=== PATIENT | female | born 1965 | race Caucasian/White ===

== ENCOUNTER 2018-01-08 19:30 | Outpatient (CLI) | payer BC | END 2018-01-08 19:31 | disposition home or self-care (01) | LOC: SLEEPLAB 19:30 | PROVIDERS: ATTEND Family Medicine | DX: R40.0 Somnolence (principal); G47.33 Obstructive sleep apnea (adult) (pediatric); R06.81 Apnea, not elsewhere classified; E66.9 Obesity, unspecified; Z68.39 Body mass index [BMI] 39.0-39.9, adult; F41.9 Anxiety disorder, unspecified; R06.83 Snoring | CPT/HCPCS: 95810 ==

== ENCOUNTER 2018-04-06 08:24 | Outpatient (CLI) | payer BC ==
[2018-04-06 09:37] LABS: #Basophils 0.1 thou/uL (0.0-0.2); #Eosinphils 0.1 thou/uL (0.0-0.7); #Lymphocytes 1.9 thou/uL (1.20-3.40); #Monocytes 0.6 thou/uL (0.11-0.59); #Neutrophils 4.6 thou/uL (1.40-6.50); %Basophils 0.9 % (0.0-1.0); %Eosinophils 1.6 % (0.0-10.0); %Monocytes 7.8 % (0.0-10.0); %Neutrophils 63.7 % (42.0-75.0); Hemoglobin 13.6 g/dL (12.0-16.0); Mean Corpuscular HGB CONC 31.9 g/dL (32.0-36.0); Mean Corpuscular Hemoglobin 30.1 pg (27.0-31.0); Mean Corpuscular Volume 94.2 fL (78.0-98.0); Mean Platelet Volume 7.4 fL (7.4-10.4); Platelet Count 326 thou/uL (130-400); RBC Distribution Width 12.6 % (11.5-14.5); Red Blood Cell (RBC) Count 4.54 mill/uL (4.20-5.40); White Blood Cell (WBC) Count 7.2 thou/uL (4.8-10.8)
[2018-04-06 09:44] LABS: Hemoglobin A1c 5.6 % (4.0-6.0)
[2018-04-06 09:47] LABS: BHCG - Serum Negative (NEGATIVE); Pregs Control Background? CLEAR/WHITE (CLR/WHITE); Pregs Control Bar Appear? YES (CONTROL BAR)
[2018-04-06 10:02] LABS: ALT (SGPT) 34 U/L (8-55); AST (SGOT) 23 U/L (5-34); Albumin 4.6 g/dL (3.5-5.0); Alkaline Phosphatase 72 U/L (40-150); Anion Gap 12 mmol/L (10-20); BUN (Urea Nitrogen) 13 mg/dL (9.8-20.1); Bilirubin, Direct 0.2 mg/dL (0.1-0.3); Bilirubin, Total 0.6 mg/dL (0.2-1.2); Calc. Creatinine Clearance 0 mL/min (70-130); Carbon Dioxide 27 mmol/L (22-29); Chloride 103 mmol/L (98-107); Estimated GFR-MDRD 74; Globulin 3.1 g/dL (2.4-3.5); Glucose 105 mg/dL (70-105); Potassium 4.6 mmol/L (3.5-5.1); Protein, Total 7.7 g/dL (6.0-8.3); Sodium 137 mmol/L (136-145)
--- NOTE | 2018-04-06 10:11 | RAD ---
TWO VIEW CHEST SERIES: Indication: Pre-operative evaluation FINDINGS: There is no evidence of lobar consolidation, effusion, or pneumothorax. Cardiac silhouette is within normal limits in size. Osseous structures are intact. IMPRESSION: No foal consolidation. POS: LOISH
--- NOTE | 2018-04-07 07:51 | EKG ---
Test Reason : Blood Pressure : / mmHG Vent. Rate : 076 BPM Atrial Rate : 076 BPM P-R Int : 172 ms QRS Dur : 092 ms QT Int : 398 ms P-R-T Axes : 062 145 043 degrees QTc Int : 447 ms Normal sinus rhythm Incomplete right bundle branch block Left posterior fascicular block Cannot rule out Anterior infarct , age undetermined Abnormal ECG Confirmed by JEFFREY BERNABE ([id number]) on 04/07/2018 7:51:17 AM Referred By: FELIPE Confirmed By:JEFFREY BERNABE
== END 2018-04-06 08:25 | disposition home or self-care (01) ==
LOC: LABBT 08:24
PROVIDERS: ATTEND Surgery
DX: Z01.818 Encounter for other preprocedural examination (principal); E66.01 Morbid (severe) obesity due to excess calories
CPT/HCPCS: 71046; 80053; 80076; 83036; 84703; 85025; 93005; 93010

== ENCOUNTER 2018-04-06 08:30 | Inpatient (IN) | payer BC ==
[2018-04-15] MEDS ORDERED: CEFAZOLIN/Water 2 GM/20 ML SYRINGE ONE (10:31)
[2018-04-15] MEDS ORDERED: Heparin 5,000 UNITS/ML VIAL ONE (10:32)
[2018-04-15] MEDS ORDERED: Bupivacaine/Epinephrine 0.25% 30 ML VIAL ONE (11:52)
[2018-04-15] MEDS ORDERED: HYDROmorphone 2 MG/ML VIAL ONE (12:08)
[2018-04-15] MEDS ORDERED: Fentanyl 100 MCG/2 ML VIAL ONE (12:08)
[2018-04-15] MEDS ORDERED: Midazolam HCl 2 mg/2 ml Vial ONE (12:08)
[2018-04-15] MEDS ORDERED: Promethazine HCl 25 MG/ML VIAL SLOW IVP PRN (12:12)
[2018-04-15] MEDS ORDERED: Naloxone HCl 0.4 mg/ml Vial IV PRN (12:12)
[2018-04-15] MEDS ORDERED: Zolpidem Tartrate 5 MG TAB PO PRN (12:12)
[2018-04-15] MEDS ORDERED: diphenhydrAMINE 50 MG/ML VIAL IM PRN (12:12)
[2018-04-15] MEDS ORDERED: Meperidine HCl/PF 25 MG/ML VIAL SLOW IVP PRN (12:12)
[2018-04-15] MEDS ORDERED: diphenhydrAMINE 25 MG CAP PO PRN (12:12)
[2018-04-15] MEDS ORDERED: Ondansetron PF 4 MG/2 ML Vial IVP PRN ×2 (12:12→13:35)
[2018-04-15] MEDS ORDERED: HYDROmorphone 10 mg/100 ml CADD IVPB PRN (12:12)
[2018-04-15] MEDS ORDERED: diphenhydrAMINE 50 MG/ML VIAL IVP PRN ×2 (12:12→13:35)
[2018-04-15] MEDS ORDERED: HYDROmorphone 2 MG/ML VIAL SLOW IVP PRN (12:12)
[2018-04-15] MEDS ORDERED: Promethazine HCl 25 MG/ML VIAL IM PRN ×3 (12:12→13:35)
[2018-04-15] MEDS ORDERED: Ondansetron HCl/PF 4 MG/2 ML Vial IVP PRN (12:12)
[2018-04-15] MEDS ORDERED: Communication Order-Pharmacy FS SCH (12:15)
[2018-04-15] MEDS ORDERED: hydrALAZINE 20 MG/ML VIAL SLOW IVP PRN (13:35)
[2018-04-15] MEDS ORDERED: Dextrose 5% in Water 1,000 ML IV PRN (13:35)
[2018-04-15] MEDS ORDERED: Dextrose 50% Abboject 50 ML SYRINGE SLOW IVP PRN (13:35)
--- NOTE | 2018-04-15 13:54 | OP ---
DATE OF PROCEDURE: 04/15/2018 PREOPERATIVE DIAGNOSIS: Morbid obesity. PROCEDURES DURING ADMISSION: Laparoscopic sleeve gastrectomy. INDICATIONS: The patient is a 53-year-old female, morbidly obese, who has attempted multiple weight loss programs without success. FINDINGS: A 38 Macanese bougie used. PROCEDURE IN DETAIL: After informed consent was obtained, the patient was taken to the operating joao m and given general endotracheal anesthesia. She was placed in the supine position. The abdomen was prepped and draped in usual fashion. Local anesthesia infiltrated subcutaneously and deep. A 12 mm incision was performed approximately 8 inches below the xiphoid slightly to the left. Veress needle inserted. Drop test performed. Pneumoperitoneum was created to a volume of 2 liters of carbon diox shefali. Utilizing a bladeless 12 mm trocar and 0 degree laparoscope, direct visual entry in the abdomin al cavity was performed. Pneumoperitoneum was created to a pressure of 15 mmHg. The patient placed in steep reverse Trendelenburg position. Nathansen liver retractor inserted. Left lobe of liver ret racted superiorly. Pylorus identified a 12 mm port placed on the right beneath it and two 12s placed left subcostal. The omentum was taken off the greater curvature 5 cm from the pylorus utilizing the LigaSure. The short gastrics were divided with the LigaSure and left crura defined with the LigaSur e. A 38-Macanese bougie was inserted, directed into the antrum. The linear 60 mm green load stapler u sed to divide the antrum to the bougie, gold load along the bougie a series of blues through the angl e of His. Intraoperative endoscopy was performed. The video endoscope was inserted under direct vis ion and advanced into the sleeve. Staple line inspected. There was no bleeding. Staple line then t ested by inflating the new stomach with pressurized air under water. There is no air leak. Stomach decompressed. Scope removed. The remnant stomach removed from the abdomen through the left lateral port site. The fascia closed with 0 Vicryl suture and the GraNee needle. Trocars and retractors rem minerva. The skin closed with interrupted 4-0 Rapide. Dermabond applied. The patient tolerated the pr ocedure well and was transferred to recovery in good condition. Sponge and needle count verified cor rect x2.
[2018-04-15 16:48] VITALS: BMI 37.6
[2018-04-15] MEDS ORDERED: Ketorolac Tromethamine 30 MG/ML VIAL IVP SCH (18:00)
[2018-04-15] MEDS: D5 1/2 NS w/20 mEq KCL 1,000 ML IV SCH ×2 (18:08→21:05)
[2018-04-15] MEDS: Acetaminophen 1,000 MG in Premix Bag 1 BAG IVPB SCH ×2 (18:08→23:41)
[2018-04-15] MEDS ORDERED: CEFAZOLIN/Water 2 GM/20 ML SYRINGE SLOW IVP SCH (19:00)
[2018-04-15] MEDS ORDERED: CEFAZOLIN 2 GM/50 ML-DEXTROSE 50 ML IVPB SCH (19:00)
[2018-04-15] MEDS: Ketorolac Tromethamine 30 MG/ML VIAL IVP SCH (20:59)
[2018-04-15] MEDS: CEFAZOLIN 2 GM/50 ML-DEXTROSE 50 ML IVPB SCH (21:01)
[2018-04-16] MEDS: Ketorolac Tromethamine 30 MG/ML VIAL IVP SCH ×2 (03:14→08:53)
[2018-04-16] MEDS: CEFAZOLIN 2 GM/50 ML-DEXTROSE 50 ML IVPB SCH (05:20)
[2018-04-16] MEDS: Acetaminophen 1,000 MG in Premix Bag 1 BAG IVPB SCH ×2 (05:20→11:12)
[2018-04-16] MEDS: D5 1/2 NS w/20 mEq KCL 1,000 ML IV SCH (05:24)
[2018-04-16 06:15] LABS: #Lymphocytes 1.2 thou/uL (1.20-3.40); #Monocytes 0.7 thou/uL (0.11-0.59); #Neutrophils 9.7 thou/uL (1.40-6.50); %Basophils 0.1 % (0.0-1.0); %Eosinophils 0.3 % (0.0-10.0); %Lymphocytes 10.5 % (21.0-51.0); %Monocytes 5.9 % (0.0-10.0); %Neutrophils 83.2 % (42.0-75.0); Hemoglobin 12.7 g/dL (12.0-16.0); Mean Corpuscular HGB CONC 31.6 g/dL (32.0-36.0); Mean Corpuscular Hemoglobin 30.2 pg (27.0-31.0); Mean Corpuscular Volume 95.5 fL (78.0-98.0); Mean Platelet Volume 8.1 fL (7.4-10.4); Platelet Count 293 thou/uL (130-400); RBC Distribution Width 12.7 % (11.5-14.5); Red Blood Cell (RBC) Count 4.22 mill/uL (4.20-5.40); White Blood Cell (WBC) Count 11.7 thou/uL (4.8-10.8)
[2018-04-16 06:53] LABS: Anion Gap 10 mmol/L (10-20); BUN (Urea Nitrogen) 9 mg/dL (9.8-20.1); Calc. Creatinine Clearance 165 mL/min (70-130); Calcium 9.4 mg/dL (7.8-10.44); Carbon Dioxide 28 mmol/L (22-29); Chloride 105 mmol/L (98-107); Estimated GFR-MDRD 85; Glucose 104 mg/dL (70-105); Potassium 4.4 mmol/L (3.5-5.1); Sodium 139 mmol/L (136-145)
[2018-04-16] MEDS ORDERED: Pantoprazole 40 MG VIAL IVP SCH (09:00)
[2018-04-16] MEDS ORDERED: Enoxaparin Sodium 40 MG/0.4 ML SYRINGE SC SCH (09:00)
--- NOTE | 2018-04-16 09:44 | RAD ---
UPPER GI AND BARIUM SWALLOW: History: 53-year-old female history post op gastric bypass and vertical sleeve. Fluoroscopy time: 0.3 minutes; dose 10.438 Gycm2. FINDINGS: Patient was given 15 cc of Gastrografin orally in the upright position. Contrast media passed readily through the esophagus and post-operative stomach without evidence of obstruction or extravasation. IMPRESSION: Unremarkable post gastric sleeve barium swallow and upper GI. POS: HIRO
[2018-04-16] MEDS ORDERED: Hydrocodone-Acetamin 15 ML UDCUP PO PRN (10:45)
[2018-04-16] MEDS ORDERED: GASTROGRAFIN 30 ML BOT ONE (10:46)
[2018-04-16 11:34] VITALS: BP 136/85; TEMP 98.6
--- NOTE | 2018-04-16 13:28 | DIS ---
DISCHARGE DIAGNOSIS: Morbid obesity. PROCEDURES DURING ADMISSION: Laparoscopic sleeve gastrectomy, intraoperative esophagogastroscopy, po stoperative Gastrografin swallow. HOSPITAL COURSE: The patient was admitted, taken to the operating room where she underwent a sleeve gastrectomy. Postoperatively, she has done well. Pain is well controlled on p.o. medication. She i s tolerating liquids well. X-ray was fine. She is discharged home in good condition on hydrocodone elixir and Zofran. She will follow up with me in 2 weeks.
== END 2018-04-16 12:30 | disposition home or self-care (01) | DRG 621 ==
LOC: SURG A 04-15 09:37
PROVIDERS: ADMIT Surgery; ATTEND Surgery
PROC: 0DB64Z3 Excision of Stomach, Percutaneous Endoscopic Approach, Vertical (ICD-10-PCS; principal; 2018-04-15)
PROC: 0DJ08ZZ Inspection of Upper Intestinal Tract, Via Natural or Artificial Opening Endoscopic (ICD-10-PCS; 2018-04-15)
DX: E66.01 Morbid (severe) obesity due to excess calories (principal); D72.829 Elevated white blood cell count, unspecified; Z79.899 Other long term (current) drug therapy; F32.9 Major depressive disorder, single episode, unspecified; G47.30 Sleep apnea, unspecified; Z79.1 Long term (current) use of non-steroidal anti-inflammatories (NSAID); Z68.39 Body mass index [BMI] 39.0-39.9, adult; Z91.030 Bee allergy status
CPT/HCPCS: 74241; 80048; 85025; 88307; 88312; 90471; 90686; 94760; C9113; G0008; J0131; J1170; J1644; J1650; J1885; J2250; J3010

== ENCOUNTER 2019-03-31 10:28 | Outpatient (CLI) | payer BC ==
--- NOTE | 2019-03-31 11:22 | MRI ---
MRI LUMBAR SPINE NONCONTRAST: HISTORY: Lumbar radiculopathy. COMPARISON: 03/20/2017. FINDINGS: Appropriate T1 marrow signal intensity of the lumbar vertebrae. Lumbar spine vertebral body height is maintained. No fracture. No significant STIR hyperintensity to suggest vertebral body edema or ligamentous injury. Visualized paraspinal muscles and solid organs are unremarkable. Conus medullaris terminates at the T12-L1 disc space. There is stable intrinsic T1 and T2 hyperintensity at the L1 level, compatible with osseous hemangiom a. There are stable type II Modic changes at the L4-L5 and L5-S1 disc spaces. T12-L1:Adequate disc hydration. No significant central canal stenosis or significant neural foraminal narrowing. L1-L2:Adequate disc hydration. No significant central canal stenosis or significant neural foraminal. L2-L3:Adequate disc hydration. No significant central canal stenosis or significant neural foraminal narrowing. Mild ligament flavum thickening and facet hypertrophy. L3-L4:Adequate disc hydration. No significant posterior disc abnormality. No significant canal stenos is or significant neural foraminal narrowing. Mild to moderate ligament flavum thickening and facet hypertrophy. L4-L5:Disc desiccation with mild loss of disc space height. Broad-based disc bulge that minimally fla ttens the thecal sac. There is ligament flavum thickening and facet hypertrophy. Overall mild central canal stenosis. Mild narrowing of the right subarticular zone with partial obscuration of the traversing right L5 nerve root, unchanged. Right neural foramen is moderately narrowed. Left neural foramen is patent. L5-S1: Desiccation without severe loss of disc space height. No significant central canal stenosis. R ight neural foramen is patent. Moderate left foraminal narrowing due to disc material. There is bilateral facet hypertrophy. IMPRESSION: Degenerative changes of the lumbar spine as detailed above. No evidence of moderate or severe central canal stenosis or severe neural foraminal narrowing. Stable narrowing of the right subarticular zone at L4-L5. Transcribed Date/Time: 03/31/2019 11:46 AM
== END 2019-03-31 10:29 | disposition home or self-care (01) ==
LOC: BICMRI 10:28
PROVIDERS: ATTEND Neurological Surgery
DX: M47.26 Other spondylosis with radiculopathy, lumbar region (principal); M48.061 Spinal stenosis, lumbar region without neurogenic claudication
CPT/HCPCS: 72148

== ENCOUNTER 2019-05-12 08:07 | Outpatient (CLI) | payer BC ==
--- NOTE | 2019-05-12 10:46 | MRI ---
MRI OF THE RT THIGH WITH AND WITHOUT CONTRAST: INDICATION: History of right foot drop and right leg neuropathy since the summer 2018. No recent trauma or surge ry to the right pelvis or right femur. COMPARISON: Comparisons are made with a prior MR of the right hip dated 03/20/2017. CONTRAST: 16 cc of MultiHance. FINDINGS: The visualized sciatic nerve demonstrates a normal signal intensity without evidence of abnormal enha ncement. No definite peripheral nerve sheath tumor is grossly evident. The visualized course of the proximal tibia and peroneal nerves appears within normal limits without overt evidence of entrapment or visible node inducing mass effect. There are mild degenerative changes involving the right knee. No visible bone marrow signal abnormality is demonstrated. IMPRESSION: No soft tissue mass seen within the right thigh. Transcribed Date/Time: 05/12/2019 11:06 AM
--- NOTE | 2019-05-12 10:56 | MRI ---
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 The patient complains of right footdrop and r ight leg neuropathy since May 2019 with no recent trauma or pelvic surgery. COMPARISON: Right hip MR examination dated 03/20/2017. CONTRAST: MultiHance 16 mL. FINDINGS: There is scattered colonic diverticulosis. No free fluid is evident. The visualized uterus, adnexa, r ectum and perirectal soft tissues are unremarkable appearing. No enlarged lymph nodes are evident. No bone marrow signal abnormality is seen to suggest the presence of fracture. There is mild to moder ate degenerative change of the right hip which has mildly progressed from the prior exam. There is worsening trochanteric bursitis overlying the right hip. The partial-thickness articular surface tear involving the anterior right gluteus medius has increased to a full-thickness, partial width tear of the anterior aspect of the right gluteus medius tendon, best seen on image 28 of series 5. There h as also been interval development of a partial-thickness articular surface tear of the anterior left gluteus medius tendon with mild left gluteus medius subtrochanteric bursitis. The sacral neural foramina are patent. The visualized right sciatic nerve is normal-appearing along its proximal course. No lymphadenopathy is evident. No overt muscular atrophy is demonstrated. No abnormal post co ntrast enhancement is evident. No definite peripheral nerve sheath tumor is identified. The right hamstring origin appears within normal limits. No iliopsoas bursitis is evident. IMPRESSION: No visible peripheral nerve sheath tumor demonstrated. There has been interval worsening of the parti al-thickness tear involving the right gluteus medius tendon. This is now a full-thickness partial-width tear involving the anterior right gluteus medius with worsening trochanteric bursitis. There has also been interval development of a small partial-thickness articular surface tear of the anterior left gluteus medius with mild left trochanteric bursitis. There is worsening [id number] e right hip osteoarthrosis. Transcribed Date/Time: 05/12/2019 11:16 AM
[2019-05-12] MEDS ORDERED: Magnevist 469MG/ML 20 ML VIAL ONE (13:48)
== END 2019-05-12 08:08 | disposition home or self-care (01) ==
LOC: BICMRI 08:07
PROVIDERS: ATTEND Neurological Surgery
DX: D36.17 Benign neoplasm of peripheral nerves and autonomic nervous system of trunk, unspecified (principal); S76.011A Strain of muscle, fascia and tendon of right hip, initial encounter; M70.60 Trochanteric bursitis, unspecified hip; M16.11 Unilateral primary osteoarthritis, right hip
CPT/HCPCS: 36415; 72197; 80048; A9579